=== PATIENT | male | born 1965 | race African-American/Black ===

== ENCOUNTER 2019-11-28 18:22 | Emergency (ER) | payer MEDICAID ==
[~2019-11-28] VITALS: Ht 167.6 cm; Wt 81.0 kg
[2019-11-28 19:18] LABS: BASOPHILS % 0.9 % (0.0-2.0); EOSINOPHILS % 4.7 % (0.0-5.0); HEMATOCRIT. 43.2 % (42.0-52.0); HEMOGLOBIN. 14.6 g/dL (14.0-18.0); LYMPHOCYTES % 34.1 % (20.0-50.0); MEAN CORPUSCULAR VOLUME 88.8 fL (80.0-94.0); MEAN PLATELET VOLUME 9.1 fl (7.4-10.4); MONOCYTES % 6.9 % (2.0-8.0); NEUTROPHILS % 53.4 % (40.0-76.0); PLATELET 231 x1000/uL (130-400); RED BLOOD CELL COUNT 4.86 mill/uL (4.7-6.1); RED CELL DISTRIBUTION WIDTH 13.8 % (11.6-14.6)
[2019-11-28 19:24] LABS: CHLORIDE 110 mEq/L (98-107)
[2019-11-29 00:25] VITALS: BP 155/78
== END 2019-11-29 01:06 | disposition home or self-care (01) ==
LOC: ER 18:22 → EDBD 18:22 → ER 11-29 01:06
DX: F16.129 Hallucinogen abuse with intoxication, unspecified (principal)
CPT/HCPCS: 36415; 80053; 84484; 85025; 93005; 99285

== ENCOUNTER 2020-01-07 16:02 | Emergency (ER) | payer MEDICAID ==
[~2020-01-07] VITALS: Ht 182.9 cm; Wt 87.0 kg
[2020-01-07] MEDS ORDERED: SODIUM CHLORIDE 0.9% 1,000 ML IV ONE (16:21)
[2020-01-07 16:47] LABS: BASOPHILS % 0.6 % (0.0-2.0); EOSINOPHILS % 3.7 % (0.0-5.0); HEMATOCRIT. 42.9 % (42.0-52.0); HEMOGLOBIN. 14.8 g/dL (14.0-18.0); LYMPHOCYTES % 31.4 % (20.0-50.0); MEAN CORPUSCULAR HEMOGLOBIN 30.2 pg (28.0-32.0); MEAN CORPUSCULAR VOLUME 87.3 fL (80.0-94.0); MONOCYTES % 7.5 % (2.0-8.0); NEUTROPHILS % 56.8 % (40.0-76.0); PLATELET 236 x1000/uL (130-400); RED BLOOD CELL COUNT 4.91 mill/uL (4.7-6.1); RED CELL DISTRIBUTION WIDTH 13.8 % (11.6-14.6)
[2020-01-07 17:07] LABS: CHLORIDE 105 mEq/L (98-107)
[2020-01-07 17:11] LABS: ETHANOL BLOOD < 10 mg/dL
[2020-01-07 17:39] LABS: CLARITY URINE CLEAR (CLEAR); COLOR URINE YELLOW (YELLOW); KETONES URINE TRACE (NEGATIVE); LEUKOCYTE ESTERASE URINE NEGATIVE (NEGATIVE); NITRITE URINE NEGATIVE (NEGATIVE); OCCULT BLOOD URINE NEGATIVE (NEGATIVE); PH URINE 5.5 (4.5-8.0); PROTEIN URINE 2+ (NEGATIVE); SPECIFIC GRAVITY URINE 1.029 (1.005-1.030)
[2020-01-07 17:51] LABS: *AMPHETAMINES SCREEN URINE PRESUMTIVE POSITIVE (NEGATIVE); *BARBITURATES SCREEN URINE NEGATIVE (NEGATIVE); *BENZODIAZEPINES SCREEN URINE NEGATIVE (NEGATIVE); *COCAINE SCREEN URINE PRESUMTIVE POSITIVE (NEGATIVE); CANNABINOID URINE SCREEN NEGATIVE (NEGATIVE); METHADONE URINE SCREEN NEGATIVE (NEGATIVE); OPIATES URINE SCREEN NEGATIVE (NEGATIVE); PHENCYCLIDINE URINE SCREEN PRESUMTIVE POSITIVE (NEGATIVE)
[2020-01-07 19:25] VITALS: BP 193/108
== END 2020-01-07 19:44 | disposition home or self-care (01) ==
LOC: ER 16:02
DX: F19.10 Other psychoactive substance abuse, uncomplicated (principal); R41.82 Altered mental status, unspecified; F14.10 Cocaine abuse, uncomplicated
CPT/HCPCS: 36415; 80053; 80305; 80320; 81003; 82962; 85025; 93005; 99283; J7030; G0480